=== PATIENT | female | born 1960 | race Caucasian/White ===

== ENCOUNTER 2020-07-27 11:57 | Observation (INO) ==
--- NOTE | 2020-07-27 13:47 | Pre Anesthesia Assessment ---
Date of Service July 27, 2020 Pre Sedation Assessment Vital Signs Temp Pulse Resp BP Pulse Ox 07/27/20 12:43 36.8 C 73 18 165/102 H 98 Cardiovascular RRR, no murmur, no edema Respiratory normal respiratory effort, lungs clear to auscultation Pre-Sedation Airway Assessment Smoking Status: Former smoker Hx Sleep Apnea: No Short, Thick Neck: Yes Thyromental Distance: > or= 3.5 Finger Breadths Oral Cavity: + WNL Mallampati Class: II ASA: ASA3 NPO Status Date of Last Intake of Fluids: 07/27/20 Time of Last Intake of Fluids: 08:00 Date of Last Intake of Solid Food: 07/26/20 Time of Last Intake of Solid Foods: 19:00 Procedure Planning Contraindications for Sedation: none Current Medications Reviewed: Yes Notes The planned sedation has been discussed with the patient. Informed Consent was obtained. I have identified the patient, determined the appropriateness of sedation and have assessed the patient immediately prior to the procedure. All medicine(s) and interventions are by my order.
--- NOTE | 2020-07-27 13:47 | History & Physical Bridge Note ---
Date of Service July 27, 2020 History & Physical Bridge Note I have examined the patient, reviewed the History & Physical and in the interval since the performance of the History & Physical I have noted the following changes of clinical significance: no changes noted
[2020-07-27] MEDS ORDERED: fentaNYL citrate 100 MCG/2 ML VIAL ONE ×2 (14:04→15:15)
[2020-07-27] MEDS ORDERED: MIDAZOLAM HCL 5 MG/ML 1 ML VIAL ONE ×2 (14:04→15:32)
[2020-07-27] MEDS ORDERED: ISOPROTERENOL HCL 0.2 MG/ML 5 ML AMP IV ONE (14:04)
--- NOTE | 2020-07-27 15:42 | Post Anesthesia Assessment ---
Date of Service July 27, 2020 Post Sedation Assessment Vital Signs Temp Pulse Resp BP Pulse Ox 07/27/20 12:43 36.8 C 73 18 165/102 H 98 Recovery Score Activity: Moves 4 extremities Respiration: Deep Breath/Cough Circulation: +/-20% PreAnes Value Consciousness: Fully Awake Oxygen Saturation: > 92% On Room Air Discharge Sedation Level of Care: Fast Track Phase II Post Sedation Plan On clinical assessment, the patient appears to have tolerated the sedation without complications. Patient is recovering as anticipated. Patient will continue to be monitored by nursing and may be discharged when sedation discharge criteria are met per below protocol. Upon Completions of procedure up to 15 minutes continue every 5 minute vital signs and the P.A.R. score; then discharge to a Phase I or Fast Track to Phase II per the following guidelines: * Discharge Patient to appropriate Phase II area if PAR is 8 or greater or return to pre- procedure baseline. The post - procedure orders will be as directed. * If PAR score is less than 8 or not return to pre-procedure baseline then patient will follow Phase I monitoring till PAR is reached for Phase II. The Phase I may be done in procedure room or may call to secure a Phase I area. * If naloxone or flumazenil are used for reversal, hold in Phase I for continued monitoring from when last reversal dose was given for a minimum of 60 minutes or longer pending the nurse and/or physician discretion of patient condition before discharge to Phase II. Please call the Sedation Physician to re-evaluate and complete post-note for discharge to Phase II area. Do NOT discharge from procedure sedation or Phase 1 until post- sedation evaluation note is complete by procedure /sedation MD Sedation Discharge Instructions to be given to the patient at discharge to home.
[2020-07-27] MEDS ORDERED: ALBUTEROL HFA 8 GM INHALER INH PRN ×2 (15:43→17:00)
--- NOTE | 2020-07-27 15:43 | Operative Report ---
Post Operative Report Pre & Post Diagnosis Pre: SVT Post AVNRT Operation Date: 07/27/20 13:00 <No data on this case meets the specified criteria> I identified the patient and participated in the time-out.: Yes Procedure Operation Date: 07/27/20 13:00 <No data on this case meets the specified criteria> Slow pathway modification EPS Surgeon Tabby Dominguez, DO Hospital Unit Clerk none Estimated Blood Loss 5 Findings Consistent with Post-Op Diagnosis Specimens none Description of Procedure see official report I attest to the content of the Intraoperative Record and any orders documented therein. Any exceptions are noted below.
--- NOTE | 2020-07-27 15:48 | Discharge Summary ---
Date of Service July 28, 2020 Admission HPI Per Admitting Provider Pt admitted for elective EPS due SVT Admission Exam Per Admitting Provider aaox3, NAD NC/AT, EOMI Supple No JVD Nrl S1/S2, No murmur CTA b/l no w/r/r soft nt/nd no LE edema b/l skin intact no focal deficits Principal Diagnosis AVNRT s/p slow pathway modification Discharge Exam aaox3, NAD NC/AT, EOMI Supple No JVD Nrl S1/S2, No murmur CTA b/l no w/r/r soft nt/nd no LE edema b/l skin intact no focal deficits b/l groins soft no hematoma Discharge Data Allergies Allergy/AdvReac Type Severity Reaction Status Date / Time amoxicillin Allergy Unknown unknown Unverified 05/16/20 14:21 latex Allergy Unknown redness/itc Verified 05/16/20 14:21 hy morphine Allergy Unknown SEVERE Unverified 05/16/20 14:21 ITCHING Penicillins Allergy Unknown pruritis Verified 05/16/20 14:21 azithromycin Allergy Unknown Verified 05/16/20 14:21 Procedures Performed Operation Date: 07/27/20 13:00 <No data on this case meets the specified criteria> EPS 3d mapping slow pathway modification Ordered Studies ECG: SR 07/27/20 07:00 EP Lab Images for PACS ONCE Hospital Course (1) AVNRT (AV shantel re-entry tachycardia): Total Time Total Time Spent Total Time Spent (In Minutes): 35 Total Time Includes: Examination of the Patient, Discharge Planning, Medication Reconciliation and Other Discharge Plan Discharge Items Patient Disposition: Home - Self-Care Reason For Visit: Supraventricular Tachycardia Discharge Diagnosis: AVNRT s/p ablation Condition on Discharge: Good Activity: As commented below Activity Comment: no heavy lifting or squating for 1 week Sexual Activity: After one week Non-emergency contact: Esol Teacher Call non-emergency contact if: you have any medication questions, your symptoms worsen, your pain is unusual for you and your wound has increased drainage Follow-up/Referrals: Radhames Rose MD [Primary Care Provider] - Diet: Regular Addtl Attending Provider Instructions: F/u with Dr. Dominguez in [facility] cardiology as scheduled next month Pending Studies at Discharge: No Stand-Alone Forms: [facility] Medications and DC Order Prescriptions: Continued bupropion HCl 200 mg Tablet Sustained-Release 12 Hr 200 mg PO BID RF: 0 citalopram 40 mg Tablet 40 mg PO QAM RF: 0 montelukast [Singulair] 10 mg Tablet 10 mg PO QAM RF: 0 lisinopril-hydrochlorothiazide 20-25 mg Tablet 1 tab PO QAM RF: 0 multivitamin Tablet 1 tab PO QAM RF: 0 Flonase 50 mcg bottle 2 spray NORBERTO DAILY RF: 0 amlodipine 2.5 mg tablet 2.5 mg PO DAILY RF: 0 albuterol 108 MCG inhaler 2 puff inhalation Q4H PRN (Reason: Shortness Of Breath Or Wheezing) RF: 0 meloxicam 15 mg tablet 15 mg PO QAM RF: 0 metoprolol succinate 25 mg tablet extended release 24 hr 25 mg PO DAILY Qty: 30 RF: 0 Discharge Orders: Discharge Order (Routine); Ordered 07/28/20 Ordered By: Breezy Albarran/Other Patient Handouts: Women and Heart Disease ..., ED About Arrhythmias Admission Data Admit Date/Time: 07/27/20 15:26 Attending Provider: Tabby Dominguez Admit Provider: Tabby Dominguez Primary Care Provider: Radhames Rose Other Interventions: Discharge Summary Assessment (RN) Last Done: 07/28/20 11:11
[2020-07-27] MEDS ORDERED: HydrALAZINE HCL 20 MG/ML VIAL ONE (16:08)
[2020-07-27] MEDS ORDERED: ONDANSETRON INJ 2 MG/ML 2 ML VIAL IV PRN (17:35)
[2020-07-27] MEDS ORDERED: HydrALAZINE HCL 20 MG/ML VIAL IV PRN (17:35)
[2020-07-27] MEDS ORDERED: OXYCODONE/ACETAMINOPHEN 5mg/325mg TAB PO PRN (18:04)
[2020-07-27] MEDS: BuPROPion SR 100 MG TABCR PO SCH (20:28)
[2020-07-28] MEDS ORDERED: MONTELUKAST SODIUM 10 MG TABLET PO SCH (09:00)
[2020-07-28] MEDS ORDERED: LISINOPRIL/HCTZ 20/25MG 1 TAB PO SCH (09:00)
[2020-07-28] MEDS ORDERED: FLUTICASONE PROPIONATE NA SPR 16 GM BTL NAE SCH (09:00)
[2020-07-28] MEDS ORDERED: AMLODIPINE BESYLATE 5 MG TAB PO SCH (09:00)
[2020-07-28] MEDS ORDERED: CITALOPRAM 40 MG TAB PO SCH (09:00)
[2020-07-28] MEDS ORDERED: MULTIVITAMIN TAB PO SCH (09:00)
[2020-07-28] MEDS ORDERED: METOPROLOL SUCC 25MG EXT REL TAB PO SCH (09:00)
[2020-07-28] MEDS ORDERED: MELOXICAM 7.5 MG TAB PO SCH (09:00)
[2020-07-28] MEDS: BuPROPion SR 100 MG TABCR PO SCH (09:26)
--- NOTE | 2020-07-29 12:38 | Electrocardiogram Report ---
Test Reason : Blood Pressure : / mmHG Vent. Rate : 075 BPM Atrial Rate : 075 BPM P-R Int : 182 ms QRS Dur : 098 ms QT Int : 418 ms P-R-T Axes : 066 018 058 degrees QTc Int : 466 ms Normal sinus rhythm Cannot rule out Anterior infarct , age undetermined Abnormal ECG When compared with ECG of 16-MAY-2020 14:19, Minimal criteria for Anterior infarct are now Present Confirmed by Orlando Canales ([id number]) on 07/29/2020 12:37:57 PM Referred By: Tabby Dominguez Confirmed By:Orlando Canales
--- NOTE | 2020-08-04 17:55 | Operative Report (OR) ---
DATE OF OPERATION: 07/27/2020 PREOPERATIVE DIAGNOSIS: Supraventricular tachycardia. 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 SURGEON: Tabby Dominguez DO. ASSISTANTS: None. ANESTHESIA: Monitored conscious. PROCEDURE: Slow pathway modification electrophysiology study and 3D mapping of the His bundle and coronary sinus os. ANESTHESIA: Monitored conscious sedation administered under my supervision by Valerie Graf. Start time of 14:33, end time 15:40. Total of 5 mg of Versed and 125 mcg of fentanyl. INTRAVENOUS FLUIDS: 30 mL BLOOD LOSS: 5 mL. URINE OUTPUT: Not applicable. SPECIMENS: None. FINDINGS: See below. DRAINS: None. INDICATIONS: This 64-year-old female with past medical history for SVT where she went to [facility] in 05/2020, which responded to adenosine. Additional past medical history of hypertension, hyperlipidemia, obstructive sleep apnea on CPAP, mild persistent asthma. Due to the recurrent SVT, she was recommended an electrophysiology study with possible ablation. CONSENT: Consent was obtained prior to the patient going into electrophysiology lab. The patient was informed of the risks, benefits and alternative procedure. Risks include but not limited to sudden cardiac , cardiac arrhythmias, cerebrovascular accident, myocardial infarction, injury to the blood vessels, chamber of the heart or the [place] electrical system where she would need an urgent emergent permanent pacemaker, bleeding or infection. The patient understood these risks and agreed with procedure as planned. Informed consent was obtained. DESCRIPTION OF THE PROCEDURE: The patient was brought into electrophysiology lab in fasting state. She was connected to continuous printed circuit boards solder leveler. Timeout was performed to ensure patient identity and procedure correctly. She was prepped and draped over bilateral groins in normal surgical standard fashion. Monitored conscious sedation was given throughout the procedure for patient's comfort level. Letha precautions were maintained throughout the procedure. 10 mL of 1% lidocaine were given in the bilateral groins for local anesthesia. Then using modified Seldinger technique, venous access was obtained in the following manner. Left femoral vein had a 7-[place] sheath followed by a Hisser quadripolar catheter positioned in the His bundle region. A 6-[place] sheath followed by a quadripolar Kim catheter positioned into the right ventricular apex. A 7-[place] sheath followed by a Decapolar DF curved coronary sinus catheter positioned in the coronary sinus. The right femoral vein had a 6-[place] sheath followed by a Kim quadripolar catheter positioned in the high right atrium. A 6-[place]atem[place] sheath that was ultimately swapped out for an SRO sheath and a 4 mm DF curve non-irrigated ablation catheter. With the catheters in position, an electrophysiology study was performed in the following findings: The MS interval was 208, QRS 86, QT 378. Sinus cycle length 783 milliseconds, AH 82 milliseconds, HV 56 milliseconds, AV Wenckebach was found to be 370 milliseconds. A fast pathway ERP was 600/280 and 400/330. The AV node ERP was less than or equal to the atrial ERP. The atrial ERP was 600/230 and 400/300. The right ventricular ERP was 600/210 and 400/200. SVT was easily inducible with atrial extrastimuli at 400/310 with an AH jump. A tachycardia cycle length was 457 milliseconds. The VA time was 76 milliseconds, the retrograde A was concentric and with ventricular entrainment, we had a VAV response in further establishing the diagnosis of typical AVNRT. With that diagnosis, we set up to do a slow pathway modification. It was at that time that the 6-Guatem[place] sheath in the right femoral vein was swapped out for an SRO and ablation catheter was placed. A 3D mapping of the His bundle region as well as the coronary sinus os was performed, then placed in the ablation catheter on the low right atrial septum. When I had a nice AV signal of 1-3 and the V signal looking like a MW type electrogram, radiofrequency ablation was given at 35 pantoja, we had excellent junctionals, we gave a few mcclain for no more than 1 minute each and then the ablation catheter was pulled back and then a post-ablation electrophysiology study was performed with the following findings: MS interval 181 milliseconds, QRS 76 milliseconds, QT 358 milliseconds. Sinus cycle length 703 milliseconds, AH 84 milliseconds, HV 50 milliseconds, AV Wenckebach 360 milliseconds. The AV node ERP was less than or equal to the atrial ERP. The atrial ERP was less than or equal to 600/250 and less than or equal to 400/280. Right ventricular ERP was 600/240 and 400/220. Giving up to triples from the high right atrium extrastimuli, I was not able to reinduce any AVNRT. All the catheters were then pulled from the heart and the sheaths were removed and manual compression was used to establish hemostasis. IMPRESSION: 1. 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 2. Dual atrioventricular shantel pathology. PLAN: Monitor patient post-overnight, EKG. No heavy lifting or squatting for 1 week and she will follow up with me in 1 month's time. I attest to the content of the Intraoperative Record and any orders documented therein. Any exception s are noted below.
[2020-08-06] MEDS ORDERED: INFLUENZA VIRUS QUAD VACCINE 0.5 ML SYR IM ONE (09:00)
[2020-08-06] MEDS ORDERED: INFLUENZA ADMINISTRATION CHARGE ONE (09:00)
== END 2020-07-28 13:30 | disposition home or self-care (01) ==
LOC: 2S 11:57 → EP 11:57